=== PATIENT | male | born 1965 | race Caucasian/White ===

== ENCOUNTER 2018-06-07 11:52 | Emergency (ER) | payer SELFPAY ==
--- NOTE | 2018-06-07 12:30 | ER Document Report ---
ED Psych Disorder / Suicide - General Chief Complaint: Psych Problem Stated Complaint: ALTERED MENTAL STATUS Time Seen by Provider: 06/07/18 12:30 TRAVEL OUTSIDE OF THE [place] IN LAST 30 DAYS: No - HPI Notes: 52-year-old man presents with suicidal ideation. Patient has a history of inpatient psychiatric hospitalization. States he has been off his medications. Very decompensated. Patient states she would like to kill himself. Patient is homeless. Patient has no support structure in the community, patient is a heavy drinker. States he drinks every day. Patient says he will try to kill himself by drowning himself, or jumping off a bridge getting hit by car. Patient states he sold his bicycle last night trying to find a place to stay. Patient claims to be a who has had inpatient psychiatric stays through the MD. Denies all physical complaints - Related Data Allergies/Adverse Reactions: cats Allergy (Uncoded 06/07/18 12:25) Past Medical History - Social History Smoking Status: Current Every Day Smoker Chew tobacco use (# tins/day): No Frequency of alcohol use: "binge" Drug Abuse: None Family History: None Patient has suicidal ideation: Yes Patient has homicidal ideation: No Renal/ Medical History: Denies: Hx Peritoneal Dialysis Psychiatric Medical History: Reports: Hx Depression Past Surgical History: Reports: Hx Appendectomy, Hx Orthopedic Surgery Review of Systems - Review of Systems Notes: REVIEW OF SYSTEMS: CONSTITUTIONAL: -fevers, -chills EENT: -eye pain, -difficulty swallowing, -nasal congestion CARDIOVASCULAR: -chest pain, -syncope. RESPIRATORY: -cough, -SOB GASTROINTESTINAL: -abdominal pain, -nausea, -vomiting, -diarrhea GENITOURINARY: -dysuria, -hematuria MUSCULOSKELETAL: -back pain, -neck pain SKIN: -rash or skin lesions. HEMATOLOGIC: -easy bruising or bleeding. LYMPHATIC: -swollen, enlarged glands. NEUROLOGICAL: -altered mental status or loss of consciousness, -headache, - neurologic symptoms PSYCHIATRIC: Positive for depression, positive for suicidal ideation ALL OTHER SYSTEMS REVIEWED AND NEGATIVE. Physical Exam - Vital signs Vitals: Temp Pulse Resp BP Pulse Ox 98.2 F 106 H 18 135/92 H 95 06/07/18 11:57 06/07/18 11:57 06/07/18 11:57 06/07/18 11:57 06/07/18 11:57 - Notes Notes: PHYSICAL EXAMINATION: GENERAL: Well-appearing, well-nourished and in no acute distress. HEAD: Atraumatic, normocephalic. EYES: Pupils equal round and reactive to light, extraocular movements intact, sclera anicteric, conjunctiva are normal. ENT: nares patent, oropharynx clear without exudates. Moist mucous membranes. NECK: Normal range of motion, supple without lymphadenopathy LUNGS: Breath sounds clear to auscultation bilaterally and equal. No wheezes rales or rhonchi. HEART: Regular rate and rhythm without murmurs ABDOMEN: Soft, nontender, normoactive bowel sounds. No guarding, no rebound. No masses appreciated. EXTREMITIES: Normal range of motion, no pitting or edema. No cyanosis. NEUROLOGICAL: Cranial nerves grossly intact. Normal speech, normal gait. Normal sensory and motor exams. PSYCH: Normal mood, normal affect. SKIN: Warm, Dry, normal turgor, countless bug bites, bed bug bites on patient's body. Course - Re-evaluation Re-evalutation: 06/07/18 13:25 Mentally ill individual presents with suicidal ideation. Extensive lab work drawn. Involuntary commitment paperwork initiated by myself. 06/07/18 13:54 Patient's extensive lab workup relatively unremarkable mild alcohol intoxication. Patient will be evaluated for placement for psychiatric stabilization. - Vital Signs Vital signs: Temp Pulse Resp BP Pulse Ox 98.2 F 106 H 18 135/92 H 95 06/07/18 11:57 06/07/18 11:57 06/07/18 11:57 06/07/18 11:57 06/07/18 11:57 - Laboratory Result Diagrams: 06/07/18 12:30 06/07/18 12:30 Laboratory results interpreted by me: 06/07/18 06/07/18 12:30 12:30 MCH 33.6 H Glucose 67 L Salicylates < 1.0 L Acetaminophen < 10 L - EKG Interpretation by Me Additional EKG results interpreted by me: 06/07/18 12:43 Normal sinus rhythm 92 bpm, no ST elevation or depression, no pathologic T-wave inversion normal MD and QRS interval. Discharge - Discharge Clinical Impression: Suicidal ideation Condition: Stable Disposition: PSYCH HOSP/UNIT
[2018-06-07 12:41] LABS: ABSOLUTE BASOPHILS # (AUTO) 0.1 10^3/uL (0.0-0.2); ABSOLUTE EOSINOPHILS # (AUTO) 0.4 10^3/uL (0.0-0.6); ABSOLUTE LYMPHOCYTES (AUTO) 3.4 10^3/uL (0.5-4.7); ABSOLUTE MONOCYTES (AUTO) 0.6 10^3/uL (0.1-1.4); ABSOLUTE NEUT (AUTO) 5.6 10^3/uL (1.7-8.2); BASOPHILS % (AUTO) 0.7 % (0-2); EOSINOPHILS % (AUTO) 3.8 % (0-6); HEMATOCRIT 46.7 % (37.9-51.0); HEMOGLOBIN 16.2 g/dL (13.5-17.0); LYMPHOCYTES % (AUTO) 33.8 % (13-45); MEAN CORPUSCULAR HEMOGLOBIN 33.6 pg (27.0-33.4); MEAN CORPUSCULAR HGB CONC 34.7 g/dL (32.0-36.0); MEAN CORPUSCULAR VOLUME 97 fl (80-97); MONOCYTES % (AUTO) 6.1 % (3-13); PLATELET COUNT 221 10^3/uL (150-450); RED BLOOD COUNT 4.82 10^6/uL (4.35-5.55); RED CELL DISTRIBUTION WIDTH 13.6 % (11.5-14.0); SEGMENTED NEUTROPHILS % (AUTO) 55.6 % (42-78); TOTAL CELLS COUNTED % (AUTO) 100 %
[2018-06-07 12:59] LABS: ALANINE AMINOTRANSFERASE 25 U/L (21-72); ALBUMIN 4.6 g/dL (3.5-5.0); ALCOHOL 170 mg/dL (NONE DETECTED); ALKALINE PHOSPHATASE 65 U/L (38-126); ASPARTATE AMINO TRANSFERASE 35 U/L (17-59); BILIRUBIN,DIRECT 0.4 mg/dL (0.0-0.4); BILIRUBIN,TOTAL 0.7 mg/dL (0.2-1.3); BLOOD UREA NITROGEN 12 mg/dL (7-20); CALCIUM 8.8 mg/dL (8.4-10.2); GLUCOSE 67 mg/dL (75-110); TOTAL PROTEIN 7.4 g/dL (6.3-8.2)
[2018-06-07 13:03] LABS: ANION GAP 19 (5-19); CARBON DIOXIDE 22 mmol/L (22-30); CHLORIDE 103 mmol/L (98-107); SODIUM 143.5 mmol/L (137-145)
[2018-06-07 13:05] LABS: ACETAMINOPHEN < 10 ug/mL (10-30); SALICYLATE < 1.0 mg/dL (2.0-20.0)
--- NOTE | 2018-06-07 15:21 | PSYCHOLOGICAL NOTE ---
Psych Note - Psych Note Psych Note: Reason for Consult: Suicidal ideation Patient presents to [facility] ED stating he is homeless and is having suicidal ideation. She disclosed he was brought to [facility] by Bus Person because he is "suicidal". When asked if the patient has a plan he states "I always have a plan I usually like to jump off things like bridges, one time I even jumped off a damn." He states that he likes to jump off things because he was "[employer]." He reports that he was unable to find a bridge to jump off of when the associate entertainment editor stopped him. He reports that he has been "institutionalized" 5 times and was able to remember it being twice in [place], once in [place] and once in [place] he was unable to remember the last. Patient was unable to identify exactly where he was in [facility]; however, he disclosed being in [place] for the last couple months. Patient disclosed that he got off [employer] in [place] and has slowly made his way across the [facility]. Patient denies any other hospital visits while in [place]. 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 He reports that he got out in 2016 and enlisted in 1998 when he was 33 years old "however I didn't go to basic until I was 34 years old." Patient continued to state that he got out as an E-5 "they forced me to scrap picker E5 because otherwise they said I have to get out... I liked being a corporal instead..." Patient reports that he was deployed for "6 tours in [place] and for 2 years in [place]... The last being in "2014 in [place]...It was in the fall... it was cold... I was [facility] the [facility]." Patient was asked if he had any VA benefits at which point he stated "I probably do but have never been seen by them and [facility] the [facility]. Patient reports he has "PTSD, amnesia disorder, schizoid personality disorder and depression." He reports that he is homeless and does not like to be around people "I try to stay in a residential but I can only handle about 3 days max." Patient endorses hallucinations disclosing that "sometimes I have hallucinations but another not real...I see shadows." He states that he just ignores them and denies any auditory hallucinations and they happen approximately 2-3 times a week. There are no records found of a Corby Chawla according to the [employer], Status Report, pursuant to Service members Civil Relief Act for the years of 1999 or 2014. Behavioral health team contacted [facility] Burrell, patient's reported exit duty station. 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 No outstanding warrants or court dates scheduled. Patient is alert and orientated to person, place, time and circumstance. Mood is euthymic with congruent affect. Patient endorses passive suicidal ideation ie no plans means or intent. Patient denies homicidal ideation. Delusions are absent behaviors congruent with intact reality based presentation i.e. organized and linear thought process. There is significant concern the patient has been misrepresenting himself for some unknown secondary gain. Eye contact is poor. Conversational speech was within normal rate, tone and prosody. Intellectual abilities appear to be within the average range. Attention and concentration are fair. Insight, judgment, impulse control is fair. No medication recommendations at this time 301.20 (F60.1) schizoid personality disorder per history provided by patient 311 (F32.9) unspecified depressive disorder per history provided by patient 309.81 (4 3.10) post manic stress disorder per history provided by patient Impression\\plan: Patient is not recommended for IVC as the patient presents with passive suicidal ideation (i.e. no plans means or intent) however attending physician disagrees and requests involuntary commitment petition. Patient told attending nurse he planned to kill himself by drowning and then told the clinician that he would jump off a bridge but couldn't because he could not find one. Patient discloses a very in-depth history however some facts did not make sense. Behavior health team was able to contact M[facility] Burrell and confirmed through the patient's [employer] he was discharged in August as an E1 (the day before the patient turn 22 years old). Patient was identified as being currently under the influence of alcohol which does impair patient's cognitive functioning (insight,judgment and impulse control); patient has been put on IVC petition until sober. There is significant concern the patient has been misrepresenting himself for some unknown secondary gain. Dr. Thao was consulted and the care management this patient; attending physician is agreement with recommendations and disposition.
--- NOTE | 2018-06-07 21:48 | EKG REPORT ---
SEVERITY:- ABNORMAL ECG - SINUS RHYTHM RIGHT ATRIAL ABNORMALITY BASELINE ARTIFACT : Confirmed by: Yvette Shah MD 07-Jun-2018 21:47:34
[2018-06-07 23:16] LABS: APPEARANCE,URINE CLEAR; BILIRUBIN,URINE NEGATIVE (NEGATIVE); COLOR,URINE YELLOW; GLUCOSE, URINE NEGATIVE (NEGATIVE); KETONES,URINE 20 mg/dL (NEGATIVE); LEUKOCYTE ESTERASE,URINE NEGATIVE (NEGATIVE); NITRITE,URINE NEGATIVE (NEGATIVE); PROTEIN,URINE NEGATIVE (NEGATIVE); URINE SPECIFIC GRAVITY 1.016; UROBILINOGEN,URINE NEGATIVE mg/dL (<2.0)
[2018-06-07 23:23] LABS: URINE AMPHETAMINES SCREEN NEGATIVE; URINE BARBITURATES SCREEN NEGATIVE; URINE BENZODIAZEPINES SCREEN NEGATIVE; URINE COCAINE SCREEN NEGATIVE; URINE MARIJUANA (THC) SCREEN NEGATIVE; URINE METHADONE SCREEN NEGATIVE; URINE PHENCYCLIDINE SCREEN NEGATIVE
[2018-06-08 08:09] VITALS: BP 135/75
--- NOTE | 2018-06-08 09:35 | ER Document Report ---
Doctor's Note Notes: 06/08/18 09:34 Rounds: Chart reviewed and patient interviewed. Patient is being evaluated for depression and suicidal ideation. Long-term diagnosis of schizophrenia. Homeless for an undetermined length of time. Abuses alcohol. Vital signs are all essentially normal. Lab studies were essentially normal except for a blood alcohol of 170. Patient says he does not feel as suicidal this morning and is agreeable to being discharged. Patient appears to be medically stable for transfer or discharge. Nicola Callaway MD
== END 2018-06-08 09:53 | disposition home or self-care (01) ==
LOC: ER 11:52
DX: F60.1 Schizoid personality disorder (principal); R45.851 Suicidal ideations; F32.9 Major depressive disorder, single episode, unspecified; F17.200 Nicotine dependence, unspecified, uncomplicated
CPT/HCPCS: 36415; 80053; 80307; 81001; 85025; 93005; 93010; 99285